=== PATIENT | male | born 1945 | race Caucasian/White ===

== ENCOUNTER 2018-12-03 14:57 | Emergency (ER) | payer MEDICARE, BC ==
--- NOTE | 2018-12-03 15:14 | ERPHSYRPT ---
- History of Present Illness Time Seen by Provider: 12/03/18 15:13 Source: patient Exam Limitations: no limitations Physician History: 73 y/o white male, with h/o vertigo in past, has had intermittent episodes of the room spinning and him still for last few days. pt took old meclizine rx twice in last few days and it seemed to help. pt has h/o seasonal allergies. denies new meds. denies cp and denies soa. Timing/Duration: day(s) (3) Severity: moderate Character of Deficits: none Deficits: decrease ability to stand, decrease ability to walk Baseline/Normal Cognition: alert oriented x 3 Current Cognition: alert oriented x 3 Associated Symptoms: nausea Allergies/Adverse Reactions: codeine Allergy (Verified 12/03/18 15:17) Home Medications: Meclizine HCl 25 mg [Antivert 25 mg] 25 mg DAILY 12/03/18 [History] - Review of Systems Constitutional: No Symptoms Eyes: No Symptoms Ears, Nose, & Throat: No Symptoms Respiratory: No Symptoms Cardiac: No Symptoms Abdominal/Gastrointestinal: No Symptoms Genitourinary Symptoms: No Symptoms Musculoskeletal: No Symptoms Skin: No Symptoms Neurological: Dizziness Psychological: No Symptoms Endocrine: No Symptoms Hematologic/Lymphatic: No Symptoms Immunological/Allergic: No Symptoms All Other Systems: Reviewed and Negative - Past Medical History Neurological History: Other (vertigo) ENT History: No Pertinent History Cardiac History: No Pertinent History Respiratory History: No Pertinent History Endocrine Medical History: No Pertinent History Musculoskeletal History: No Pertinent History GI Medical History: No Pertinent History History: No Pertinent History Psycho-Social History: No Pertinent History Male Reproductive Disorders: No Pertinent History - Past Surgical History Neuro Surgical History: No Pertinent History Cardiac: No Pertinent History Respiratory: No Pertinent History Gastrointestinal: No Pertinent History Genitourinary: No Pertinent History Musculoskeletal: No Pertinent History Male Surgical History: No Pertinent History - Nursing Vital Signs Nursing Vital Signs: Initial Vital Signs Pulse Rate 78 12/03/18 15:03 Respiratory Rate 16 12/03/18 15:03 Blood Pressure 181/82 12/03/18 15:03 O2 Sat by Pulse Oximetry 99 12/03/18 15:03 Pain Scale Pain Intensity 6 - [place] Coma Scale Best Eye Response (Bette): (4) open spontaneously Best Verbal Response ([place]): (5) oriented Best Motor Response ([place]): (6) obeys commands Bette Total: 15 - Physical Exam General Appearance: no apparent distress, alert, anxiety Eye Exam: bilateral eye: normal inspection, PERRL, EOMI Ears, Nose, Throat Exam: normal ENT inspection, TMs normal, moist mucous membranes Neck Exam: normal inspection, non-tender, supple, full range of motion Respiratory: normal breath sounds, lungs clear, airway intact, No chest tenderness, No respiratory distress Cardiovascular: regular rate/rhythm, normal heart sounds, normal peripheral pulses Gastrointestinal: soft, No normal bowel sounds, No tenderness Rectal Exam: not done Back Exam: normal inspection, normal range of motion, No CVA tenderness, No vertebral tenderness Extremity Exam: normal inspection, normal range of motion, pelvis stable Mental Status: alert, oriented x 3, 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 Exam: normal hearing, normal speech, PERRL, tongue midline Coordination/Gait: normal finger to nose, normal gait, normal cerebellar function Motor/Sensory: no motor deficit, no sensory deficit, no pronator drift Skin Exam: normal color, warm, dry SpO2 Interpretation: normal O2 Delivery: Room Air - Course Nursing assessment & vital signs reviewed: Yes EKG Interpreted by Me: RATE (73), Sinus Rhythm, NORMAL AXIS, NORMAL INTERVALS, NORMAL QRS, Other (no comparison ekg) Ordered Tests: Active Orders 24 hr Category Date Time Status EKG-ER Only STAT Care 12/03/18 15:38 Active IV Insertion STAT Care 12/03/18 15:37 Active HEAD WITHOUT CONTRAST [CT] Stat Exams 12/03/18 15:37 Taken CBC W DIFF Stat Lab 12/03/18 15:39 Completed CMP Stat Lab 12/03/18 15:39 Completed UA W/RFX UR CULTURE Stat Lab 12/03/18 15:37 Completed Medication Summary Discontinued Medications Generic Name Dose Route Start Last Admin Trade Name Freq PRN Reason Stop Dose Admin Sodium Chloride Confirm 12/03/18 15:27 Sodium Chloride 0.9% 500 Ml Administered 12/03/18 15:28 Dose 500 mls @ ud IV .STK-MED ONE Sodium Chloride 500 mls @ 500 mls/hr 12/03/18 15:38 12/03/18 15:44 Sodium Chloride 0.9% 500 Ml IV 12/03/18 16:37 500 mls/hr .Q1H ONE Administration Ondansetron HCl Confirm 12/03/18 15:27 Zofran 4 Mg/2 Ml Vial Administered 12/03/18 15:28 Dose 4 mg .ROUTE .STK-MED ONE Ondansetron HCl 4 mg 12/03/18 15:37 12/03/18 15:44 Zofran 4 Mg/2 Ml Vial IV 12/03/18 15:38 4 mg STAT ONE Administration Lab/Rad Data: Laboratory Result Diagrams 12/03/18 15:39 12/03/18 15:39 Laboratory Results 12/03/18 12/03/18 12/03/18 Range/Units 15:39 15:39 15:37 WBC 6.2 (4.0-10.5) K/mm3 RBC 4.70 (4.1-5.6) M/mm3 Hgb 14.8 (12.5-18.0) gm/dl Hct 44.5 (42-50) % MCV 94.7 (78-100) fl MCH 31.5 (26-32) pg MCHC 33.3 (32-36) g/dl RDW 12.2 (11.5-14.0) % Plt Count 184 (150-450) K/mm3 MPV 11.1 H (6-9.5) fl Gran % 55.6 (36.0-66.0) % Eos # (Auto) 0.16 (0-0.5) Absolute Lymphs (auto) 1.91 (1.0-4.6) Absolute Monos (auto) 0.66 (0.0-1.3) Lymphocytes % 30.6 (24.0-44.0) % Monocytes % 10.6 (0.0-12.0) % Eosinophils % 2.6 (0.00-5.0) % Basophils % 0.6 (0.0-0.4) % Absolute Granulocytes 3.47 (1.4-6.9) Basophils # 0.04 (0-0.4) Sodium 143 (137-145) mmol/L Potassium 4.1 (3.5-5.1) mmol/L Chloride 105 (98-107) mmol/L Carbon Dioxide 28 (22-30) mmol/L Anion Gap 14.0 (5-15) MEQ/L BUN 20 (9-20) mg/dL Creatinine 1.40 H (0.66-1.25) mg/dL Estimated GFR 52.9 ML/MIN Glucose 181 H (74-106) mg/dL Calcium 9.5 (8.4-10.2) mg/dL Total Bilirubin 0.70 (0.2-1.3) mg/dL AST 27 (17-59) U/L ALT 19 (0-50) U/L Alkaline Phosphatase 81 (38-126) U/L Serum Total Protein 7.8 (6.3-8.2) g/dL Albumin 4.4 (3.5-5.0) g/dL Urine Color STRAW (YELLOW) Urine Appearance CLEAR (CLEAR) Urine pH 7.0 (5-6) Ur Specific [place] 1.004 (1.005-1.025) Urine Protein NEGATIVE (Negative) Urine Ketones NEGATIVE (NEGATIVE) Urine Blood NEGATIVE (0-5) Uriel/ul Urine Nitrite NEGATIVE (NEGATIVE) Urine Bilirubin NEGATIVE (NEGATIVE) Urine Urobilinogen NEGATIVE (0-1) mg/dL Ur Leukocyte Esterase NEGATIVE (NEGATIVE) Urine WBC (Auto) NONE (0-5) /HPF Urine RBC (Auto) NONE (0-2) /HPF U Epithel Cells (Auto) NONE (FEW) /HPF Urine Bacteria (Auto) NONE SEEN (NEGATIVE) /HPF Urine Mucus (Auto) SLIGHT (NEGATIVE) /HPF Urine Culture Reflexed NO (NO) Urine Glucose NEGATIVE (NEGATIVE) mg/dL - Progress Progress: improved, re-examined Progress Note: 12/03/18 16:28 ct head-no acute process. pt states he is feeling normal now. no dizziness and no headache. Counseled pt/family regarding: lab results, diagnosis, need for follow-up, rad results - Departure Departure Disposition: Home Clinical Impression: Vertigo Condition: Stable Critical Care Time: No Additional Instructions: drink plenty of fluids. take medications as prescribed. follow up with primary doctor for further management. Prescriptions: Meclizine HCl 25 mg [Antivert 25 mg] 25 mg PO Q8H PRN #10 tablet PRN Reason: Dizziness
[2018-12-03] MEDS ORDERED: Sodium Chloride 0.9% 500 ML 500 ML IV ONE ×2 (15:27→15:38)
[2018-12-03] MEDS ORDERED: Zofran 4 MG/2 ML VIAL ONE (15:27)
[2018-12-03] MEDS ORDERED: Zofran 4 MG/2 ML VIAL IV ONE (15:37)
[2018-12-03 16:01] VITALS: PULSE 68
[2018-12-03 16:08] LABS: BASOPHIL % 0.6 % (0.0-0.4); Basophil (Absolute #) 0.04 (0-0.4); Eosinophil % 2.6 % (0.00-5.0); Eosinophil (Absolute #) 0.16 (0-0.5); Granulocyte Absolute (ANC) 3.47 (1.4-6.9); Granulocytes % 55.6 % (36.0-66.0); Hematocrit 44.5 % (42-50); Hemoglobin 14.8 gm/dl (12.5-18.0); Lymphocyte (Absolute #) 1.91 (1.0-4.6); Lymphocytes % 30.6 % (24.0-44.0); Mean Cell Volume 94.7 fl (78-100); Mean Corpuscular Hemoglobin 31.5 pg (26-32); Mean Corpuscular Hgb Concent. 33.3 g/dl (32-36); Mean Platelet Volume 11.1 fl (6-9.5); Monocyte (Absolute #) 0.66 (0.0-1.3); Monocytes % 10.6 % (0.0-12.0); Platelet Count 184 K/mm3 (150-450); Red Cell Distribution Width 12.2 % (11.5-14.0); White Blood Count 6.2 K/mm3 (4.0-10.5)
[2018-12-03 16:19] LABS: ALBUMIN 4.4 g/dL (3.5-5.0); BILIRUBIN,TOTAL 0.7 mg/dL (0.2-1.3); Calcium 9.5 mg/dL (8.4-10.2); Creatinine 1 1.4 mg/dL (0.66-1.25); Potassium 4.1 mmol/L (3.5-5.1); Total Protein 7.8 g/dL (6.3-8.2)
[2018-12-03 16:48] LABS: Appearance CLEAR (CLEAR); Bilirubin NEGATIVE (NEGATIVE); Blood NEGATIVE Ery/ul (0-5); Glucose NEGATIVE (NEGATIVE); Ketones NEGATIVE (NEGATIVE); Leukocyte Esterase NEGATIVE (NEGATIVE); Mucus SLIGHT /HPF (NEGATIVE); Nitrite NEGATIVE (NEGATIVE); Protein,Urine Dip NEGATIVE (Negative); Specific Gravity 1.004 (1.005-1.025); Urobilinogen NEGATIVE mg/dL (0-1)
[2018-12-03 16:52] LABS: Bacteria NONE SEEN /HPF (NEGATIVE)
[2018-12-03 16:58] VITALS: BP 161/85; O2SAT 96
--- NOTE | 2018-12-03 20:46 | XRAY ---
Indication: Dizziness and vertigo. Multiple contiguous axial images obtained through the head without contrast. Comparison: None Age-appropriate global atrophy. No acute intracranial hemorrhage, abnormal extra-axial fluid collection, or mass effect. Fourth ventricle is midline without hydrocephalus. [place]-white matter differentiation preserved. Bony calvarium intact. Visualized paranasal sinuses and mastoid air cells are clear. Impression: Negative CT head without contrast exam. CTDI 70.48
== END 2018-12-03 17:20 | disposition home or self-care (01) ==
LOC: ED 14:57
DX: R42 Dizziness and giddiness (principal)
CPT/HCPCS: 36415; 70450; 80053; 81001; 85025; 93005; 96360; 96374; 99284; J2405